=== PATIENT | male | born 1970 | race Caucasian/White ===

== ENCOUNTER 2023-02-24 18:55 | Observation (INO) | payer OTHER, SELFPAY ==
--- NOTE | ~2023-02-24 | CT_ITS ---
EXAMINATION: CT brain wo con DATE: 02/24/2023 21:03 INDICATION: Altered mental status. TECHNIQUE: Computed tomography (CT) of the head was performed without intravenous contrast. The mA wa s adjusted according to patient size. Iterative reconstruction technique was employed. The dose-lengt h product was 681.00 mGy-cm. COMPARISON: None FINDINGS: There is no intracranial hemorrhage, acute infarction, or abnormal intracranial mass lesion . The ventricles are normal in size. The orbits are normal. There is mild mucosal thickening in the p aranasal sinuses. The mastoid air cells are normal. IMPRESSION: 1. Normal brain. Reviewed, dictated and finalized at location E. IMPRESSION: 1. Normal brain.
--- NOTE | ~2023-02-24 | XR_ITS ---
EXAMINATION: XR chest 1V portable DATE: 02/24/2023 19:59 INDICATION: Chest pain. TECHNIQUE: A single frontal view of the chest was obtained. COMPARISON: None. FINDINGS: The chest demonstrates clear lungs without pneumonia, pleural effusion, or pneumothorax. Th e heart size is normal. IMPRESSION: 1. No acute cardiopulmonary disease. Reviewed, dictated and finalized at location E.
--- NOTE | 2023-02-24 19:01 | ECG_ITS ---
Measurements Intervals [place] Rate: 111 P: 56 MO: 144 QRS: 61 QRSD: 103 T: 60 QT: 345 QTc: 470 Interpretive Statements SINUS TACHYCARDIA BASELINE ARTIFACT- I, AVL, V6 ABNORMAL ECG NO PREVIOUS ECG AVAILABLE FOR COMPARISON Electronically Signed On 02-24-2023 20:31:23 CDT by Ian Field D.O.
[2023-02-24 19:03] VITALS: BP 142/95; PULSE 107; RESP 30; TEMP 36.9; O2SAT 100
--- NOTE | 2023-02-24 19:12 | ED.CHESTPAIN ---
HPI - Chest Pain General Chief Complaint: Chest Pain Stated Complaint: seizure Time Seen by Provider: 02/24/23 19:01 History of Present Illness HPI narrative: 52-year-old male presenting here with chest pain, per his partner at bedside, he had been out in the heat for long time and when he went to pick her up from work, he was complaining of some chest discomfort, she then called the ambulance. She thinks that he must be having heat exhaustion. He does have a history of tics and spasms per his which improve with muscle relaxants and antidepressants. Related Data Allergies Allergy/AdvReac Type Severity Reaction Status Date / Time No Known Allergies Allergy Verified 02/24/23 19:18 Review of Systems Review of Systems: CONST: No fever. HEENT: No sore throat C/V: chest pain RESP: No cough GI: No abdominal pain : No dysuria. M/S: No joint pain. SKIN: No rash. NEURO: No headache PSYCH: Anxiety PMFSH Social History Social History Smoking status: Never smoker Alcohol intake: unknown Substance use: unknown Substance use type: does not use Lack of Transportation: No Lack of Food: Never True Current Housing: I Have Housing Concerned About Future Housing: No Difficulty Paying Gas/Electric Bills: No Difficulty Paying for Meds: No Currently Unemployed: No Education: High School Diploma/GED Difficulty w/ Childcare or Family Care: No Spiritual care concerns: No Exam Narrative: EXAMINATION OF ORGAN SYSTEMS/BODY AREAS: Constitutional: Vital signs per nursing GENERAL: During time of my exam patient was actively having spasms requiring his to help hold him down for blood draw HEAD: Normal with no signs of head trauma. EYES: EOMI, conjunctiva normal ENT: Hearing grossly intact LUNGS: Labored respirations HEART: Tachycardic ABD: [Soft], [nontender to palpation] EXT: Normal range of motion, normal pulses radial pulses bilaterally SKIN: [No rashes or lesions.] NEURO: [Alert and oriented x3; having active spasms but able to still answer some questions.] PSYCH: Normal affect Course Vital Signs Vital signs: Vital Signs Temperature 98.4 F 02/24/23 19:03 Pulse Rate 107 H 02/24/23 19:03 Respiratory Rate 30 H 02/24/23 19:03 Blood Pressure 142/95 H 02/24/23 19:03 Pulse Oximetry 100 02/24/23 19:03 Oxygen Delivery Room Air 02/24/23 19:03 Temperature 97 F L 02/25/23 01:57 Pulse Rate 105 H 02/25/23 01:57 Respiratory Rate 22 H 02/25/23 01:57 Blood Pressure 137/80 02/25/23 01:57 Pulse Oximetry 100 02/25/23 01:57 Oxygen Delivery Room Air 02/24/23 19:03 MDM - Chest Pain MDM Narrative Medical decision making narrative: ED COURSE AND MEDICAL DECISION MAKIN-year-old male presenting with chest pain that started earlier today after he was out in the hot sun working. EKG done in triage negative for acute ischemic changes. Cardiac workup is initiated. EKG: Performed in triage and interpreted by me. Normal sinus rhythm. Rate 111. Normal axis. OK normal. QRS duration normal. QTc normal. No pathologic Q waves. No ST segment elevation or depression to suggest acute ischemia. No RV strain pattern. I did give the patient a small amount of Ativan given his spasms which did improve his symptoms drastically, he did get aspirin, cardiac work-up initiated, given his slight confusion which is different from his baseline per , I did obtain a CT head. Chest x-ray on my independent interpretation does seem to show some prominent pulmonary vasculature however imaging appears to be diminished quality, per radiology interpretation no acute abnormality. Labs including troponin is negative, I did reevaluate the patient and he is now sitting comfortably, his AMS has resolved. However he states that he is still having chest pain that is 7 out of 10. He is now able to describe what happened earlier, he had been out working, and then felt chest pain, sweats, and th
[2023-02-24 19:20] LABS: Basophils Absolute Auto 0.1 K/mm3 (0.0-0.1); Basophils Percent Auto 0.5 % (0.2-1.2); Eosinophils Percent Auto 0.2 % (0-4.4); Hematocrit 43.7 % (42.0-52.0); Immature Granulocyte Absolute 0.02 K/mm3 (0.00-0.031); Immature Granulocyte Percent A 0.2 % (0-0.5); Lymphocytes Absolute Auto 1.66 K/mm3 (0.9-3.2); Mean Corpuscular HGB Conc 34.3 g/dl (32-36); Mean Corpuscular Hemoglobin 32.9 pg (26-34); Mean Corpuscular Volume 95.8 fl (80-100); Mean Platelet Volume 10.2 fl (7.4-10.4); Monocytes Absolute Auto 0.8 K/mm3 (0.1-0.6); Monocytes Percent Auto 8.1 % (2.6-8.5); Neutrophils Absolute Auto 7.8 K/mm3 (1.3-6.7); Platelet Count Result 237 k/mm3 (150-375); Red Blood Count 4.56 M/mm3 (4.6-6.20); Red Cell Distribution Width 13.2 % (11.5-14.5); White Blood Count 10.4 K/mm3 (4.5-10.0)
[2023-02-24] MEDS: ASPIRIN 81 MG CHEWABLE TABLET 324 MG PO (19:20)
[2023-02-24 19:23] VITALS: BP 135/89; PULSE 109; RESP 30; O2SAT 97
[2023-02-24 19:31] LABS: Alkaline Phosphatase 93 U/L (38-126); Anion Gap 17 mmol/L (8-16); Aspartate Amino Transferase 50 U/L (17-59); Bilirubin,Total 0.9 mg/dL (0.2-1.3); Blood Urea Nitrogen 18 mg/dL (9-20); Calcium 9.7 mg/dL (8.4-10.2); Carbon Dioxide 18 mmol/L (22-30); Chloride 101 mmol/L (98-107); Estimated CRCL calculation 64 ml/min; Estimated Glomerular Filt Rate > 60; Glucose 115 mg/dL (65-110); Lipase 55 U/L (23-300); Potassium 3.8 mmol/L (3.4-5.0); Sodium 136 mmol/L (137-145)
[2023-02-24 19:34] LABS: INR 1.1; Prothrombin Time 14.7 Seconds (11.1-14.7)
[2023-02-24 19:35] LABS: Partial Thromboplastin Time 36.8 SECONDS (22.3-36.8)
[2023-02-24 19:37] LABS: Alanine Aminotransferase 50 U/L (6-50)
[2023-02-24] MEDS: LORazepam INJ (*CRX) 2 MG/ML VIAL 1 MG IV PUSH (19:39)
[2023-02-24 19:42] LABS: Troponin I < 0.012 ng/mL (0.000-0.034)
[2023-02-24 22:11] VITALS: BP 117/92; PULSE 87; RESP 23; O2SAT 100
[2023-02-24] MEDS: LACTATED RINGERS 1,000 ML 999 ML IV CONT (22:11)
[2023-02-24 22:37] LABS: Troponin I < 0.012 ng/mL (0.000-0.034)
[2023-02-24 23:01] VITALS: BP 111/75; PULSE 76; RESP 21; O2SAT 100
[2023-02-24 23:16] VITALS: BP 118/68; PULSE 79; RESP 22; O2SAT 99
[2023-02-24 23:46] VITALS: BP 116/68; PULSE 81; RESP 26; O2SAT 99
[2023-02-25] VITALS (7 sets, daily range): BP systolic 97–137; BP diastolic 44–80; PULSE 76–119; RESP 16–22; TEMP 36.1–36.2; O2SAT 97–100; BMI 27.7
--- NOTE | 2023-02-25 01:53 | ADMGEN ---
This patient, Ant Lawton, was admitted to IMU Room 201-01. Patient/family oriented to hospital policies and general routines including ID bracelet, bed and alarms, visiting hours, pain management, procedures, bathroom and other care routines, personal items, smoking policy, room service/diet, and visiting hours. Information on how to activate the Rapid Response Team has been discussed. Patient/Family are encouraged to report perceived risks to care and to ask questions if they do not understand what they are told or what they should do.
[2023-02-25 03:05] LABS: Troponin I < 0.012 ng/mL (0.000-0.034)
--- NOTE | 2023-02-25 07:22 | PM.IMHP ---
H&P: HPI History of Present Illness Date/Time: 02/25/23 07:22 Chief Complaint: Chest pain Narrative: This is a 52-year-old man who came to the emergency room last evening because of chest pain. Following evaluation in the emergency room he was admitted to our service and to the IMU last night. The patient's chart has been reviewed and he has been seen in IMU. He reports no previous knowledge of any cardiac problems. 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 He was lifting a heavy sees stone blocks that way about 90 lb as well as some railroad ties. At the end of this job he felt very weak and overwhelmed he felt lightheaded and at 1 point says that he fell to the ground. He started to have some pain in his chest or around this time that he is describes as a dull central chest discomfort. The discomfort is worse if he takes a deep breath it is not radiating to any other location is not associated with diaphoresis nausea vomiting or air hunger. He came to the emergency room for evaluation of this his electrocardiogram looks benign his biomarkers were negative he was admitted to our service into the IMU. Upon coming into the room to see him he states that the pain is still there rating it about 4 to 5/10 on a severity scale although he was sleeping when I entered the room to see him. The patient reports no other significant complaints at this time. He says that he has been hospitalized briefly or seen in emergency rooms several times over the last 8-10 years for episodes of pain like this and and has not been found to have any cardiac problems on 1 of these admissions he did have a stress test he thinks it was at [facility] that was negative. He reports a history of hypertension and hypercholesterolemia which is not being treated with any medication as he did not wish to take medication for these problems. 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 He sees a neurologist in [place] he has uncontrollable spasms in his trunk and neck that have been occurring for a number of years. His neurologist has found any medication that seems to help with this. He offers no other pertinent history of when he is in his usual state of health he is able to sustain normal activities and does not have any symptoms of exertional chest pain shortness of breath palpitations orthopnea PND or edema. Following admission to the hospital his troponin levels have remained unremarkable. Review of Systems Constitutional: Constitutional: Reports no additional constitutional complaints Eyes: Eyes: Reports no additional eye complaints ENT: Reports system reviewed and no additional complaints, except as documented Cardiovascular: Cardiovascular: Reports as per HPI Respiratory: Respiratory: Reports no additional respiratory complaints Gastrointestinal: Gastrointestinal: Reports no additional gastrointestinal complaints Musculoskeletal: Musculoskeletal: Reports no additional musculoskeletal complaints Integumentary/Breasts: Skin/Breast: Reports system reviewed and no additional complaints, except as docu Neurologic: Reports as per HPI Psychiatric: Psychiatric: Reports no additional psychiatric complaints PMFSH Social History Social History Smoking status: Never smoker Alcohol intake: unknown Substance use: unknown Substance use type: does not use Lack of Transportation: No Lack of Food: Never True Current Housing: I Have Housing Concerned About Future Housing: No Difficulty Paying Gas/Electric Bills: No Difficulty Paying for Meds: No Currently Unemployed: No Education: High School Diploma/GED Difficulty w/ Childcare or Family Care: No Spiritual care concerns: No Meds Home Medications and Allergies Home Medications Medication Instructions Recorded Co
--- NOTE | 2023-03-03 07:21 | PM.DS ---
DS: Admitting Diagnosis Discharge Date 02/25/23 Admitting Diagnosis Chest pain DS: Discharge Diagnosis Discharge Diagnosis (1) Chest pain: Code(s): R07.9 - Chest pain, unspecified Status: Acute DS: Summary Hospital Course Reason for hospitalization: Rule out acute coronary syndrome Hospital Course: This is a 52-year-old man without previous cardiac history. He does have a unspecified neurological diagnosis of a spasm/tremor of his trunk. He was working out in the hot weather the morning of a mission to the hospital. He was experiencing some chest pain that clinically was atypical of and not suggestive of myocardial ischemia. After being seen in the emergency room the decision was made to admit him to our service to rule out acute coronary syndrome. When he was seen the following morning he was feeling better but still having some mild central chest discomfort. It was clear that this was not related to myocardial ischemia when his electrocardiogram continued to show no evidence of injury and his troponin levels were negative x3 sets. The decision was made to allow BP to be discharged for follow-up with his PCP. Myocardial ischemia workup was not recommended. Time spent discussing smoking cessation with patient: 3 to 10 minutes Status at Discharge Functional status at discharge: independent ambulation Overall status at discharge: patient is back to baseline Time Spent with Patient Time attestation: Total time spent providing and/or coordinating discharge services: Time spent: Less than 30 minutes Exam Const: General: comfortable Other: Well-developed well-nourished patient in no significant distress exhibiting. Attic spasms in his trunk HENMT: Mouth: Yes moist mucous membranes Eyes: Sclera: sclerae normal Neck: Neck: supple and no JVD Thyroid: thyroid normal Resp: Effort & Inspection: normal respiratory effort Auscultation: clear to auscultation bilaterally Cardio: Rate: regular rate Rhythm: regular rhythm GI: GI Palp: Yes Soft to palpation Auscultation: normal bowel sounds Skin: General skin exam: normal color Neuro: Other: Alert and oriented x3 Extrem: General: normal to inspection Discharge Plan Discharge Attending physician on discharge: Jose Coffman Consulting providers: Franklin Gutierrez V.; Ian Field Discharging Clinician: Jose Coffman Anticipated Discharge Date/Time: 02/25/23 07:30 Patient Disposition: Home, Self-Care Activity: unlimited Diet: regular Patient Instructions: Antibiotic Form, Chest Pain (DC) Stand Alone Forms: General Discharge Information Follow-up/Referrals: Darcie,Jose Wade MD [Primary Care Provider] - Discharge Medications: Continued No Home Medications Date of admission: 02/25/23 00:18 Primary Care Provider: DarcieJose Admitting Provider: Jose Coffman Attending physician on admission: Jose Coffman Condition: Stable
== END 2023-02-25 08:44 | disposition home or self-care (01) ==
LOC: ANHED 21:00 → ANHIMU 02-25 02:17
PROVIDERS: Emergency Medicine; Admitting Provider Specialist; Emergency Provider Emergency Medicine; PCP Internal Medicine; Visit Provider Specialist
DX: R07.9 Chest pain, unspecified (principal); R00.0 Tachycardia, unspecified; R11.10 Vomiting, unspecified; R94.31 Abnormal electrocardiogram [ECG] [EKG]; I10 Essential (primary) hypertension; E78.00 Pure hypercholesterolemia, unspecified
CPT/HCPCS: 36415; 70450; 71045; 80053; 83690; 84484; 85025; 85610; 85730; 93005; 96361; 96374; 99285; A9270; G0378; J2060; J7120